=== PATIENT | male | born 1965 | race Hispanic/Latino ===

== ENCOUNTER → 2021-04-18 09:11 | Outpatient (CLI) | payer OTHER, SELFPAY ==
--- NOTE | ~2021-04-18 | XR_ITS ---
EXAMINATION: XR lumbar spine 2-3V DATE: 04/18/2021 09:24 INDICATION: Low back pain TECHNIQUE: Anteroposterior and lateral views of the lumbar spine, and cone-down lateral view of the l umbosacral junction were obtained. COMPARISON: None. FINDINGS: 4 mm anterolisthesis L4 on L5. Alignment is otherwise normal. Vertebral body heights are normal. Mild disc height loss at L2-L3 and mild to moderate disc height loss at L4-L5. Severe facet osteoarthriti s at L4-L5. Sacrum and bilateral sacral iliac joints are normal. IMPRESSION: 1. Mild to moderate lumbar spondylosis most prominent at L4-L5 where there is mild to moderate disc h eight loss, severe facet osteoarthritis and 4 mm anterolisthesis of L4 on L5. Reviewed, dictated and finalized at location A. IMPRESSION: 1. Mild to moderate lumbar spondylosis most prominent at L4-L5 where there is m ild to moderate disc height loss, severe facet osteoarthritis and 4 mm anteroli sthesis of L4 on L5.
== END ==
PROVIDERS: Visit Provider Nurse Practitioner Family
DX: M47.816 Spondylosis without myelopathy or radiculopathy, lumbar region (principal)
CPT/HCPCS: 72100

== ENCOUNTER 2021-05-20 21:36 | Emergency (ER) | payer OTHER, SELFPAY ==
[2021-05-20 21:38] VITALS: BP 192/89; PULSE 73; RESP 16; TEMP 36.6; O2SAT 100
[2021-05-20 22:27] VITALS: BP 164/85; PULSE 67; RESP 16; O2SAT 97
[2021-05-20 23:52] VITALS: BP 156/81
--- NOTE | 2021-05-20 23:54 | PC.NURSE ---
pt had blood rechecked, stated he doesn't feel bad and will follow up with primary tomorrow.
== END 2021-05-21 00:16 | disposition left against medical advice (07) ==
LOC: ANHED 23:57
PROVIDERS: PCP Family Medicine
DX: I10 Essential (primary) hypertension (principal)
CPT/HCPCS: 99199

== ENCOUNTER → 2021-07-08 12:20 | Outpatient (CLI) | payer OTHER, SELFPAY ==
--- NOTE | ~2021-07-08 | XR_ITS ---
XR abdomen/kub 1V DATE: 07/08/2021 12:41 INDICATION: Low back pain TECHNIQUE: AP supine views COMPARISON: 04/18/2021 lumbar spine FINDINGS: No visceromegaly is evident. The psoas shadows are intact. The bowel gas pattern is unremar kable, without evidence of obstruction. No significant abnormal calcification. IMPRESSION: Nonspecific abdomen Reviewed, dictated and finalized at Location A. Reviewed, dictated and finalized at location A. IMPRESSION: Nonspecific abdomen
== END ==
PROVIDERS: PCP Family Medicine; Visit Provider Nurse Practitioner Family
DX: M54.5 Low back pain (principal); R35.0 Frequency of micturition
CPT/HCPCS: 74018

== ENCOUNTER → 2021-08-12 15:27 | Outpatient (CLI) | payer OTHER, SELFPAY ==
--- NOTE | ~2021-08-12 | MR_ITS ---
EXAMINATION: MR lumbar spine wo [facility] EXAM DATE: 08/12/2021 16:39 INDICATION: M47.819 - Spondylosis without myelopathy or radiculopathy... Low Back pain. TECHNIQUE: Multi-sequential, multiplanar MR images of the lumbar spine were obtained without contrast . Sagittal T1, T2, T2 fat saturation images. Axial T2 weighted images. There is no prior study for comparison. FINDINGS: There is mild to moderate disc disease L4-5 and L5-S1, mild at L2-3 and L3-4. There is 5 mm anterolisthesis L4 on L5 without spondylolysis. There is annular fissure at L5-S1. The conus medulla ris terminates at the T12-L1 level and has normal signal intensity and morphology. Mild to moderate chronic compression fracture of the T11 vertebral body. There are no suspicious marrow signal abnorma lities. Paraspinal soft tissue is unremarkable. Level by level evaluation: T12-L1: Disc does not extend beyond the endplate margin. Facet arthropathy: None. Neural foraminal stenosis: No stenosis. Central canal stenosis: No stenosis. L1-L2: Disc does not extend beyond the endplate margin. Facet arthropathy: None. Neural foraminal stenosis: No stenosis. Central canal stenosis: No stenosis. L2-L3: There is a mild to moderate diffuse disc bulge. Facet arthropathy: Mild to moderate. Neural foraminal stenosis: Mild to moderate right, mild left. Central canal stenosis: Mild. L3-L4: There is a mild to moderate diffuse disc bulge. Facet arthropathy: Mild. Neural foraminal stenosis: Mild to moderate right, mild left. Central canal stenosis: Mild. L4-L5: There is a mild to moderate diffuse disc bulge. Facet arthropathy: Moderate . Ligamentum flavum enlargement . Neural foraminal stenosis: Moderate right, mild to moderate left. Central canal stenosis: Mild to moderate. L5-S1: There is a mild to moderate diffuse disc bulge. Central annular fissure. Facet arthropathy: Mild to moderate. Neural foraminal stenosis: Mild to moderate left, mild right. Central canal stenosis: Mild. IMPRESSION: 1. Grade 1 anterolisthesis L4 on L5 without spondylolysis. 2. Mild to moderate lumbar spondylosis. Reviewed, dictated and finalized at location A.
== END ==
PROVIDERS: PCP Nurse Practitioner Family; Visit Provider Nurse Practitioner Family
DX: M47.817 Spondylosis without myelopathy or radiculopathy, lumbosacral region (principal); M48.07 Spinal stenosis, lumbosacral region
CPT/HCPCS: 72148

== ENCOUNTER 2021-08-18 11:50 | Outpatient (CLI) | payer OTHER, SELFPAY ==
--- NOTE | ~2021-08-18 | US_ITS ---
EXAMINATION: US aorta DATE: 08/18/2021 12:28 INDICATION: Abdominal bruit TECHNIQUE: Grayscale, color Doppler, and pulsed Doppler images of the aorta and common iliac arteries were obtained. COMPARISON: None. FINDINGS: The proximal aorta measures 2.7 cm AP. The mid aorta measures 2.0 cm AP. The distal aorta measures 1. 6 cm AP. The right common iliac artery measures 9 mm. The left common iliac artery measures 10 mm. Tr ansverse images of the inferior vena cava with obtained which demonstrate a mobile thin curvilinear e chogenic region within the lumen of the inferior vena cava. IMPRESSION: 1. Normal caliber abdominal aorta. 2. Indeterminate mobile thin curvilinear echogenic region incidentally noted within the lumen of the hepatic portion of the inferior vena cava. Differential would include small amount of thrombus or vas cular web or reflection artifact from the posterior wall. Visualization is poor due to patient body h abitus and depth of the region imaged. No correlate identified in the more caudal inferior vena cava on recent lumbar spine MR dated 08/04/2021. Reviewed, dictated and finalized at location B. IMPRESSION: 1. Normal caliber abdominal aorta. 2. Indeterminate mobile thin curvilinear echogenic region incidentally noted wi thin the lumen of the hepatic portion of the inferior vena cava. Differential w ould include small amount of thrombus or vascular web or reflection artifact fr om the posterior wall. Visualization is poor due to patient body habitus and de pth of the region imaged. No correlate identified in the more caudal inferior v mary cava on recent lumbar spine MR dated 08/04/2021.
== END 2021-08-18 11:51 | disposition home or self-care (01) ==
LOC: ANHIMG 11:53
PROVIDERS: PCP Family Medicine; Visit Provider Nurse Practitioner Family
DX: R09.89 Other specified symptoms and signs involving the circulatory and respiratory systems (principal); R93.7 Abnormal findings on diagnostic imaging of other parts of musculoskeletal system; Z87.19 Personal history of other diseases of the digestive system
CPT/HCPCS: 76775

== ENCOUNTER 2021-08-29 09:22 | Outpatient (CLI) | payer OTHER, SELFPAY ==
--- NOTE | ~2021-08-29 | CT_ITS ---
EXAMINATION: CTA abdomen pelvis EXAM DATE: 08/29/2021 10:01 INDICATION: R93.5 - Abnormal findings on diagnostic imaging of other ... Pain under left rib cage. TECHNIQUE: Spiral CT of the abdomen and pelvis was performed following intravenous injection of 100 m L Omnipaque 350. Axial, coronal and sagittal images of the abdomen and pelvis were reviewed. Maximum intensity projection 3-D reconstructions of the aortoiliac arteries were created by the technologist on dedicated workstation. The dose-length product (DLP) for this examination was 497.85 mGy-cm. Th e exposure was tailored according to patient size (auto mA exposure control), and iterative reconstru ction (ASIR) was used as additional dose reduction technique. Correlation is made to lumbar MRI exami nation from 08/12/2021. FINDINGS: The abdominal aorta is normal in caliber and without dissection. Mild narrowing of the monse ac artery origin. The SMA, renal arteries and BARBARA are widely patent. The liver, spleen, adrenal glan ds and pancreas are unremarkable. Gallbladder is unremarkable. No biliary obstruction. Portal and splenic veins are patent. Kidneys enhance symmetrically. There is no hydronephrosis. The prostate is unremarkable. Small inguinal fat-containing hernias bilaterally. The bladder is unremarkable. T here is no retroperitoneal or pelvic lymphadenopathy. The appendix is normal. The stomach and small bowel are unremarkable. There is expected amount of c olonic stool. No free intraperitoneal gas. The heart is normal in size. There are no pericardial or pleural effusions. The lung bases are unremarkable. There is chronic T11 mild to moderate compr ession fracture. No acute fractures are identified. There is grade 1 anterolisthesis L4 on L5. Lower lumbar spondylosis. IMPRESSION: 1. No acute intra-abdominal findings. 2. Small inguinal hernias. Reviewed, dictated and finalized at location B.
== END 2021-08-29 09:23 | disposition home or self-care (01) ==
LOC: ANHIMG 09:27
PROVIDERS: PCP Family Medicine; Visit Provider Nurse Practitioner Family
DX: R93.5 Abnormal findings on diagnostic imaging of other abdominal regions, including retroperitoneum (principal); K40.90 Unilateral inguinal hernia, without obstruction or gangrene, not specified as recurrent
CPT/HCPCS: 74174; Q9967

== ENCOUNTER → 2021-09-13 00:44 | Outpatient (CLI) | payer OTHER, SELFPAY ==
[2021-09-13 18:23] LABS: SARS-CoV-2 RNA PCR Negative
== END ==
PROVIDERS: PCP Family Medicine; Visit Provider Internal Medicine Gastroenterology
DX: Z01.812 Encounter for preprocedural laboratory examination (principal); Z20.822 Contact with and (suspected) exposure to COVID-19
CPT/HCPCS: C9803; U0003; U0005

== ENCOUNTER 2021-09-17 02:21 | Day surgery (SDC) | payer OTHER, SELFPAY ==
[2021-08-29 13:20] VITALS: BMI 30.9
[2021-09-17 09:30] VITALS: BP 158/90; PULSE 71; RESP 20; TEMP 36.8; O2SAT 100
[2021-09-17] MEDS: LACTATED RINGERS 1,000 ML 150 ML IV CONT (09:33)
--- NOTE | 2021-09-17 10:20 | PM.HPGS ---
History of Present Illness History of Present Illness Consent: Risks, benefits, and alternatives have been discussed and questions answered. Patient agrees to proceed with procedure. Chief complaint: abdominal pain, neoplasm screening Narrative: Uli Bah is a 56 year old male with pain in luq, imaging unremarkable,took omeprazole. Never had scopes. Review of Systems Constitutional: Constitutional: Denies headache(s) and Denies weakness Eyes: Eyes: Denies blurry vision ENT: Reports Normal hearing present, Denies headache(s) and Denies neck pain Cardiovascular: Cardiovascular: Denies chest pain and Denies dyspnea Respiratory: Respiratory: Denies dyspnea Gastrointestinal: Gastrointestinal: Reports no additional gastrointestinal complaints Genitourinary: Genitourinary: Denies dysuria Musculoskeletal: Musculoskeletal: Denies neck pain Integumentary/Breasts: Skin/Breast: Denies dry skin Neurologic: Reports Normal hearing present, Denies headache(s) and Denies weakness Psychiatric: Psychiatric: Denies anxiety Endocrine: Endocrine: Denies change in body appearance Hematologic/Lymphatic: Hematologic/Lymphatic: Denies easy bleeding Allergic/Immunologic: Allergic/Immunologic: Denies urticaria PMFSH Past Medical History Medical History BMI 30.0-30.9,adult BMI 31.0-31.9,adult BMI greater than 30 Family history of prostate cancer in father Lumbar back pain Family History Family History Mother Cancer Father No problems noted. Sibling No problems noted. Sibling No problems noted. 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 Gender identity (if verbalized by the patient): Male Sexual Orientation (if Verbalized by the Patient): Straight or Heterosexual Meds Home Medications and Allergies Home Medications Medication Instructions Recorded Confirmed Type omeprazole magnesium [Prilosec OTC] 20 mg PO DAILY PRN 09/17/21 09/17/21 History Allergies Allergy/AdvReac Type Severity Reaction Status Date / Time Penicillins Allergy Unknown Verified 09/17/21 09:29 Vital Signs Vital Signs - 24 hr 09/17/21 09:30 Temperature 98.3 F Pulse Rate 71 Respiratory Rate 20 Blood Pressure 158/90 H Pulse Oximetry 100 Exam Const: General: comfortable and no acute distress HENMT: General nose exam: Normal nares present Eyes: General: appearance normal, both eyes and all related structures Neck: Neck: no JVD Resp: Auscultation: clear to auscultation bilaterally Cardio: Rate: regular rate Rhythm: regular rhythm GI: Inspection: non-distended GI Palp: Yes Soft to palpation Skin: General skin exam: normal color Neuro: General: gait normal Speech: normal speech Extrem: General: normal to inspection Psych: Mental Status: mental status grossly normal Assessment and Plan Assessment and plan (1) Abdominal pain: Qualifiers: Abdominal location: left upper quadrant Qualified Code(s): R10.12 - Left upper quadrant pain Code(s): R10.9 - Unspecified abdominal pain Status: Acute Assessment and Plan: egd to check for ulcer, etc (2) Screening for malignant neoplasm of colon: Code(s): Z12.11 - Encounter for screening for malignant neoplasm of colon Status: Acute Assessment and Plan: colonoscopy
--- NOTE | 2021-09-17 10:23 | P.PNAN_ITS ---
Anes - Initial Pre Proc Eval Procedure: Operation Date: 09/17/21 10:30 Proposed Procedures p Esophagogastroduodenoscopy & Screening Colonoscopy - Sarwat Herrera MD Date/Time: 09/17/21 10:23 Surgeon: Sarwat Yepez MD Pre Op Diagnosis: abdominal pain, neoplasm screening Patient Data Age: 56 Gender: M Height: 1.75 m Weight: 94.6 kg Last Vital Signs Temp 98.3 F 09/17/21 09:30 Pulse 71 09/17/21 09:30 Resp 20 09/17/21 09:30 BP 158/90 H 09/17/21 09:30 Pulse Ox 100 09/17/21 09:30 Allergies Allergy/AdvReac Type Severity Reaction Status Date / Time Penicillins Allergy Unknown Verified 09/17/21 09:29 Home Medications Medication Instructions Recorded Confirmed Type omeprazole magnesium [Prilosec OTC] 20 mg PO DAILY PRN 09/17/21 09/17/21 History Patient hx anesthesia problems: none Family hx anesthesia problems: none Results Review: All pre-operative results and documents have been reviewed as part of the pre-operative evaluation. [facility] Past Medical History Medical History BMI 30.0-30.9,adult BMI 31.0-31.9,adult BMI greater than 30 Family history of prostate cancer in father Lumbar back pain Family History Family History Mother Cancer Father No problems noted. Sibling No problems noted. Sibling No problems noted. 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 Gender identity (if verbalized by the patient): Male Sexual Orientation (if Verbalized by the Patient): Straight or Heterosexual Anes - Eval Final PreProcedure Day of Procedure 09/17/21 10:23 Patient weight: overweight Heart: regular rate and rhythm Lungs: clear to auscultation Airway: Mallampati scale class II Neurological: alert and oriented Last oral intake: >/= 8 hours ASA classification: II Emergent: no Anesthetic plan: proceed Anesthesia type and monitoring: general GIVS and standard monitoring Results Review: All pre-operative results and documents have been reviewed as part of the pre-operative evaluation. Informed Consent: The patient's anesthetic plan and its attendant risks and benefits were discussed with the patient/family/POA. Questions were solicited and answers provided to the satisfaction of the patient/family/POA.
--- NOTE | 2021-09-17 10:32 | SUR.OPER ---
EGD- [id number] [facility]- [id number]
[2021-09-17 10:56] VITALS: BP 105/44; PULSE 84; RESP 22; O2SAT 99
[2021-09-17 11:06] VITALS: BP 114/69; PULSE 68; RESP 23; O2SAT 97
[2021-09-17 11:16] VITALS: BP 124/71; PULSE 57; RESP 25; O2SAT 99
== END 2021-09-17 11:32 | disposition home or self-care (01) ==
PROVIDERS: PCP Family Medicine; Visit Provider Internal Medicine Gastroenterology
PROC: 0DJ08ZZ Inspection of Upper Intestinal Tract, Via Natural or Artificial Opening Endoscopic (ICD-10-PCS; CPT 43235; principal; 2021-09-17 10:30)
DX: Z12.11 Encounter for screening for malignant neoplasm of colon (principal); R10.12 Left upper quadrant pain; D12.5 Benign neoplasm of sigmoid colon; D12.3 Benign neoplasm of transverse colon; K20.80 Other esophagitis without bleeding; R10.9 Unspecified abdominal pain; K64.8 Other hemorrhoids
CPT/HCPCS: 43239; 45380; 45385; 88305; C9803; J2704; J7120; U0003; U0005

== ENCOUNTER → 2021-11-10 09:24 | Outpatient (CLI) | payer OTHER, SELFPAY ==
[2021-11-10 19:04] LABS: SARS-CoV-2 RNA PCR Positive
== END ==
PROVIDERS: PCP Family Medicine; Visit Provider Family Medicine
DX: U07.1 COVID-19 (principal); R50.9 Fever, unspecified; R52 Pain, unspecified
CPT/HCPCS: C9803; U0003; U0005

== ENCOUNTER 2022-06-15 14:58 | Emergency (ER) | payer OTHER, SELFPAY ==
--- NOTE | 2022-06-15 15:02 | ED.ARRPALP ---
HPI - Arrhythmia/Palpitations General Chief Complaint: Arrhythmia/Palpitations Stated Complaint: heart racing Time Seen by Provider: 06/15/22 15:02 Source: patient Mode of arrival: ambulatory Limitations: no limitations History of Present Illness HPI narrative: Mr. Bah is a 57-year-old male patient presenting to the clinic today with complaints of his heart racing. He reports he just recently took a new workout supplement and of the symptoms and he is having some anxiety. Reports that his heart rate was 130 in the gym as he was trying to work out. He denies any shortness of breath or chest pain however he states he is unable to get a deep breath in. Related Data Allergies Allergy/AdvReac Type Severity Reaction Status Date / Time Penicillins Allergy Unknown Verified 06/15/22 15:15 Review of Systems Review of Systems: Pertinent positives per HPI. Patient denies any fever, chills, rash, headache, visual changes, dizziness, cough, runny nose, sore throat, shortness of breath, chest pain, nausea, vomiting, diarrhea, constipation, abdominal pain, or any urinary issues. PMFSH Past Medical History Medical History BMI 30.0-30.9,adult BMI 31.0-31.9,adult BMI greater than 30 Family history of prostate cancer in father Lumbar back pain Family History Family History Mother Cancer Father No problems noted. Sibling No problems noted. Sibling No problems noted. 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 There is no relevant family history pertinent to the patient complaint. Exam Narrative: General: Well-developed, well nourished, in no apparent distress Head: Normocephalic, atraumatic. Cardio: Regular rate and rhythm, s1 and s2 normal, no murmur appreciated. Resp: Clear to auscultation bilaterally, no rhonchi, rales, wheezing or rubs. Extremities: No deformity, no edema, no cyanosis, capillary refill less than 2 seconds, peripheral pulses palpable and strong. Integumentary: [place], warm, and dry, intact without lesion, no rashes. Course Course Emergency Course: Portions of this record may have been created with voice recognition software. Level of Care: Express Care Visit Vital Signs Vital signs: Vital signs reviewed MDM - Arrhythmia/Palpitations MDM Narrative Medical decision making narrative: At the time of visit patient is resting comfortably on the exam table. His heart rate has gone from 108 bpm down to 90 bpm. Patient is feeling more relaxed. Benadryl 50 mg p.o. given in the clinic today. Recommend avoiding taking this particular pre workout supplement as I suspect he has had adverse reaction to this supportive measures were discussed with the patient he voiced understanding of discharge instructions and agrees with the treatment plan. Differential Diagnosis Differential diagnosis: Likely palpitations, anxiety, artial fibrillation and ventricular tachycardia ECG Data EKG #1: Attestation: I personally reviewed and interpreted this ECG as follows: ECG completion date: 06/15/22 ECG completion time: 15:09 Prior ECG tracings: not available for review Interpretation: EKG shows sinus tachycardia with a heart
[2022-06-15 15:12] VITALS: BP 178/86; PULSE 108; RESP 18; TEMP 37.1; O2SAT 98
--- NOTE | 2022-06-15 15:14 | ECG_ITS ---
Measurements Intervals [place] Rate: 108 P: 58 [place]: 167 QRS: 32 QRSD: 104 T: 32 QT: 323 QTc: 433 Interpretive Statements SINUS TACHYCARDIA BORDERLINE ECG NO PREVIOUS ECG AVAILABLE FOR COMPARISON Electronically Signed On 06-15-2022 16:38:50 CDT by Srikanth Gonzales M.D.
[2022-06-15] MEDS: diphenhydrAMINE HCl CAP 25 MG CAPSULE 50 MG PO (15:23)
== END 2022-06-15 15:27 | disposition home or self-care (01) ==
PROVIDERS: Emergency Provider Nurse Practitioner Family
DX: R00.2 Palpitations (principal); T50.905A Adverse effect of unspecified drugs, medicaments and biological substances, initial encounter
CPT/HCPCS: 93005; 99213; A9270; G0463

== ENCOUNTER 2024-02-15 12:28 | Emergency (ER) | payer OTHER, SELFPAY ==
--- NOTE | 2024-02-15 12:34 | ECG_ITS ---
Measurements Intervals [place] Rate: 61 P: 59 [place]: 167 QRS: 22 QRSD: 105 T: 39 QT: 368 QTc: 374 Interpretive Statements SINUS RHYTHM COMPARED TO ECG 06/15/2022 15:09:20 SINUS RHYTHM NOW PRESENT Electronically Signed On 02-15-2024 14:50:42 CDT by Isaias Frazier M.D.
--- NOTE | 2024-02-15 12:34 | ED.CHESTPAIN ---
HPI - Chest Pain General Chief Complaint: Chest Pain Stated Complaint: Chest Pain Time Seen by Provider: 02/15/24 12:46 Source: patient Mode of arrival: ambulatory Limitations: no limitations History of Present Illness HPI narrative: 58-year-old male presents with concern for left-sided chest pain for several weeks. He reports that symptoms started after he had the flu couple weeks ago. Reports he noticed today after working out. He denies any shortness of breath, cough, fever, injury. Denies nausea or vomiting. MD complaint: chest pain Related Data Allergies Allergy/AdvReac Type Severity Reaction Status Date / Time Penicillins Allergy Unknown Verified 02/15/24 12:46 Review of Systems Review of Systems: CONSTITUTIONAL: Denies malaise, chills, sweats, or fever. CARDIOVASCULAR: Reports chest pain. Denies palpitations, or edema. RESPIRATORY: Denies cough or dyspnea. GASTROINTESTINAL: Denies abdominal pain, nausea, vomiting SKIN: Denies rash or itching. NEUROLOGIC: Denies numbness, weakness, or headache. All systems reviewed & are unremarkable except as noted in HPI and below [facility] Past Medical History Medical History (Updated 02/15/24 @ 13:18 by Carla Roth NP) Acute onset aura migraine BMI 30.0-30.9,adult BMI 31.0-31.9,adult BMI 32.0-32.9,adult BMI 33.0-33.9,adult BMI greater than 30 Family history of prostate cancer in father Lumbar back pain Screening for thyroid disorder [facility] examination Family History Family History Mother Cancer Father No problems noted. Sibling No problems noted. Sibling No problems noted. Social History Social History Smoking status: Never smoker Second hand tobacco smoke exposure: No Alcohol intake: current Alcohol use details: 2 Substance use: never Substance use type: does not use Lack of Transportation: No Lack of Food: Never True Current Housing: I Have Housing Concerned About Future Housing: No Difficulty Paying Gas/Electric Bills: No Difficulty Paying for Meds: No Currently Unemployed: YES Education: High School Diploma/GED Difficulty w/ Childcare or Family Care: No Living arrangements: with family Additional living arrangements comments: and child Occupation/Education: retired 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 There is no relevant family history pertinent to the presenting complaint Exam Narrative: GENERAL: Well-appearing, well-nourished, and in no acute distress. HEAD: Normocephalic, atraumatic. EYES: PERRLA, sclera clear, and EOMI. ENT: Nares clear. Mucous membranes moist. NECK: Supple. CHEST: No respiratory distress. Clear to auscultation. No bony deformities, no asymmetry. Speaks in full sentences. HEART: Regular rate and rhythm. No murmur heard. Normal peripheral pulses. SKIN: Warm, dry, no visible rash. NEURO: Alert and oriented x3. PSYCH: Normal mood and affect Course Course Emergency Course: Patient is aware of diagnosis, understands and agrees to treatment plan. Anticipatory guidance given. Patient agrees to follow-up as directed and is aware of reasons to seek care at the emergency department. Portions of this record may have been created with voice recognition software Level of Care: Express Care Visit Reevaluation(s) Reevaluation #1: Patient reports symptoms have resolved after doing the GI cocktail. Patient has an appointment with his primary care doctor tomorrow, was advised to keep that appointment for further evaluation. Date: 02/15/24 Time: 13:16 Vital
[2024-02-15 12:49] VITALS: BP 157/82; PULSE 69; RESP 16; TEMP 37.1; O2SAT 100
[2024-02-15] MEDS: MAG HYDROX/AL HYDROX/SIMETH 30 ML UDC 15 ML PO (13:01)
[2024-02-15] MEDS: LIDOCAINE HCL 2% VISC SOLN 15 ML UDC PO (13:02)
== END 2024-02-15 13:19 | disposition home or self-care (01) ==
PROVIDERS: Emergency Provider Nurse Practitioner; PCP Family Medicine
DX: R10.13 Epigastric pain (principal)
CPT/HCPCS: 93005; 99213; A9270; G0463

== ENCOUNTER 2024-04-04 07:10 | Outpatient (CLI) | payer OTHER, SELFPAY ==
--- NOTE | ~2024-04-04 | NM_ITS ---
EXAMINATION: NM stress w perf spect multi DATE: 04/04/2024 10:54 INDICATION: Chest pain. TECHNIQUE: Rest images were obtained following intravenous administration of 11.2 mCi Tc99m tetrofosm in (Myoview). The patient performed an exercise activity. At peak exercise, 33.4 mCi Tc99m tetrofosmi n (Myoview) was administered intravenously, and supine and prone stress images were obtained. Data wa s reconstructed into short axis and horizontal and vertical long axis SPECT images. Gated SPECT image s were also obtained. COMPARISON: None. FINDINGS: There is no definite reversible or fixed perfusion abnormality to suggest ischemia or infar ction. There is no segmental wall motion abnormality. Left ventricular ejection fraction measures 5 6%. IMPRESSION: 1. No definite ischemia or infarct. 2. Normal left ventricular ejection fraction measuring 56%. Reviewed, dictated and finalized at location A.
--- NOTE | 2024-04-04 07:30 | ECHO_ITS ---
Patient Info Name: Uli Bah Age: 58 years : 1965 Gender: Male Ht: 68 in Wt: 210 lbs BSA: 2.17 m2 HR: 73 bpm BP: 180 / 107 mmHg Technical Quality: Good Exam Date: 04/04/2024 7:39 AM Exam Location: Echo Lab Patient Status: Outpatient Admit Date: 04/04/2024 Staff Ordering Physician: Cadence Mi APRN Associate Creative Director: Latonia Fabian RDCS Attending Provider: Cadence Mi APRN Referring Physician: Shmuel WARE; Exam Type: CA echo doppler color flow Study Info Indications R07.9 - Chest pain, unspecified Complete two-dimensional, color flow and Doppler transthoracic echocardiogram is performed. Summary 1. Complete two-dimensional, color flow and Doppler transthoracic echocardiogram is performed. 2. Left ventricular chamber dimension is normal. 3. Left ventricular systolic function is normal, estimated at 60-65%. 4. There is mild concentric increased left ventricular wall thickness. 5. The left ventricular diastolic function is normal. 6. E/e' 9 is minimally elevated. 7. Global longitudinal strain is mildly abnormal at -16.7%. 8. Left atrial chamber dimension is mildly enlarged. 9. There is mild aortic valve sclerosis. 10. There is trace mitral valve regurgitation. 11. There is trace tricuspid valve regurgitation. 12. No pulmonary hypertension, estimated pulmonary arterial systolic pressure is 28 mmHg. 13. Dilated inferior vena cava with >50% collapse upon inspiration consistent with elevated right atrial pressure, 10 mmHg. Left Ventricle E/e' 9 is minimally elevated. Global longitudinal strain is mildly abnormal at -16.7%. Left ventricular chamber dimension is normal. Left ventricular systolic function is normal, estimated at 60-65%. There is mild concentric increased left ventricular wall thickness. The left ventricular diastolic function is normal. Right Ventricle Right ventricular systolic function is normal and with normal TAPSE 2.2 cm. Right ventricular chamber dimension is normal. Left Atria Left atrial chamber dimension is mildly enlarged. Right Atria Right atrial chamber dimension is normal. Aortic Valve The aortic valve is trileaflet. There is mild aortic valve sclerosis. There is no aortic valve stenosis. There is no aortic valve regurgitation. Pulmonic Valve There is no pulmonic regurgitation. Mitral Valve There is no mitral valve stenosis. There is trace mitral valve regurgitation. Tricuspid Valve There is trace tricuspid valve regurgitation. No pulmonary hypertension, estimated pulmonary arterial systolic pressure is 28 mmHg. Pericardium/Pleural There is no pericardial effusion. Inferior Vena Cava Dilated inferior vena cava with >50% collapse upon inspiration consistent with elevated right atrial pressure, 10 mmHg. Aorta The aortic root size at the sinus of Valsalva is normal. Left Ventricular Outflow Tract Name Value Normal LVOT 2D LVOT Diameter 2.0 cm LVOT Doppler LVOT Peak Gradient 7 mmHg LVOT Mean Gradient 4 mmHg LVOT VTI 28 cm LVOT VTI/AV VTI Ratio 1.0 LVOT Stroke Volume 92 ml L
--- NOTE | 2024-04-04 07:30 | EST_ITS ---
Patient Info Name: Uli Bah Age: 58 years : 1965 Gender: Male Ht: 68 in Wt: 210 lbs BSA: 2.17 m2 HR: 66 bpm BP: 148 / 80 mmHg Heart Rhythm: Sinus Rhythm Exam Date: 04/04/2024 9:10 AM Exam Location: Echo Lab Patient Status: Outpatient Admit Date: 04/04/2024 Staff Ordering Physician: Cadence Mi APRN Attending Provider: Cadence Mi APRN Exercise Technologist: Rachael Durán CT Exercise Physician: Jackson Ricci DO Exam Type: CA stress test treadmill w NM Study Info Indications R07.89 - Other chest pain A nuclear stress test was performed. Summary 1. 1. Negative Bayron exercise stress test for ischemic ST changes by ECG criteria. 2. 2. Good functional capacity, achieving 12 METs of workload. 3. 3. Baseline hypertension with hypertensive response to exercise. 4. 4. Appropriate HR response to exercise. 5. 5. Appropriate HR recovery at 1 minute post exercise. 6. 6. Nuclear scan to follow and will be reported separately. Please correlate with it. 7. 7. Patient informed of the above results. Protocol: [facility]ron Stress ECG Details Stage: REST Duration (min): 1 min : 6 sec Speed (mph): 0.0 Grade (%): 0 HR (bpm): 67 SBP (mmHg): 148 DBP (mmHg): 80 METS: --- Stage: REST Duration (min): 10 min : 22 sec Speed (mph): 0.0 Grade (%): 0 HR (bpm): 75 SBP (mmHg): 148 DBP (mmHg): 80 METS: --- Stage: STAGE 1 Duration (min): 1 min : 0 sec Speed (mph): 1.7 Grade (%): 10 HR (bpm): 81 SBP (mmHg): 148 DBP (mmHg): 80 METS: --- Stage: STAGE 1 Duration (min): 2 min : 0 sec Speed (mph): 1.7 Grade (%): 10 HR (bpm): 90 SBP (mmHg): 148 DBP (mmHg): 80 METS: --- Stage: STAGE 1 Duration (min): 3 min : 0 sec Speed (mph): 1.7 Grade (%): 10 HR (bpm): 88 SBP (mmHg): 170 DBP (mmHg): 82 METS: --- Stage: STAGE 2 Duration (min): 1 min : 0 sec Speed (mph): 2.5 Grade (%): 12 HR (bpm): 99 SBP (mmHg): 170 DBP (mmHg): 82 METS: --- Stage: STAGE 2 Duration (min): 2 min : 0 sec Speed (mph): 2.5 Grade (%): 12 HR (bpm): 92 SBP (mmHg): 181 DBP (mmHg): 85 METS: --- Stage: STAGE 2 Duration (min): 3 min : 0 sec Speed (mph): 2.5 Grade (%): 12 HR (bpm): 100 SBP (mmHg): 181 DBP (mmHg): 85 METS: --- Stage: STAGE 3 Duration (min): 1 min : 0 sec Speed (mph): 3.4 Grade (%): 14 HR (bpm): 109 SBP (mmHg): 181 DBP (mmHg): 85 METS: --- Stage: STAGE 3 Duration (min): 2 min : 0 sec Speed (mph): 3.4 Grade (%): 14 HR (bpm): 114 SBP (mmHg): 217 DBP (mmHg): 78 METS: --- Stage: STAGE 3 Duration (min): 3 min : 0 sec Speed (mph): 3.4 Grade (%): 14 HR (bpm): 118 SBP (mmHg): 217 DBP (mmHg): 78 METS: --- Stage: STAGE 4 Duration (min): 1 min : 0 sec Speed (mph): 4.2 Grade (%): 16 HR (bpm): 134 SBP (mmHg): 212 DBP (mmHg): 89 METS: --- Stage: STAGE 4 Duration (min): 2 min :
== END 2024-04-04 07:11 | disposition home or self-care (01) ==
LOC: ANHCARD 07:11
PROVIDERS: PCP Family Medicine; Visit Provider Nurse Practitioner Adult Health
DX: R07.89 Other chest pain (principal); I35.8 Other nonrheumatic aortic valve disorders; I51.7 Cardiomegaly
CPT/HCPCS: 78452; 93017; 93306; A9502

== ENCOUNTER 2025-04-19 13:01 | Outpatient (CLI) | payer OTHER, SELFPAY ==
--- NOTE | ~2025-04-19 | US_ITS ---
US soft tissue LE RT 04/19/2025 13:16 Indication: Localized swelling of right lower extremity Procedure: High-resolution Limited soft tissue ultrasound of the right lower extremity Comparison: No prior studies for comparison. Findings: Normal heterogeneous echotexture without focal solid or cystic mass. No abnormal vascularit y. Impression: 1: Normal soft tissue ultrasound of the right lower extremity in the area of palpable concern. No dis crete mass. Reviewed, dictated and finalized at location A. Impression: 1: Normal soft tissue ultrasound of the right lower extremity in the area of pa lpable concern. No discrete mass.
== END 2025-04-19 13:02 | disposition home or self-care (01) ==
LOC: MICIMG 13:02
PROVIDERS: PCP Family Medicine; Visit Provider Family Medicine
DX: R22.41 Localized swelling, mass and lump, right lower limb (principal)
CPT/HCPCS: 76882

== ENCOUNTER 2025-08-21 11:02 | Outpatient (CLI) | payer BC, SELFPAY ==
--- NOTE | ~2025-08-21 | XR_ITS ---
EXAMINATION: XR chest 2V, 08/21/2025 11:57 CDT HISTORY: R05.3 - Chronic cough COMPARISON: No comparisons available. Technique: 2 views obtained. Findings: The lungs are clear, no effusion. No pneumothorax. Heart is normal size. Mediastinal and hilar contours are within normal limits. Bony thorax no acute abnormality. Impression: No acute cardiopulmonary abnormality. Reviewed, dictated and finalized at location P. Impression: No acute cardiopulmonary abnormality.
== END 2025-08-21 11:03 | disposition home or self-care (01) ==
PROVIDERS: PCP Family Medicine; Visit Provider Family Medicine
DX: R05.3 Chronic cough (principal)
CPT/HCPCS: 71046

== ENCOUNTER 2025-09-24 14:00 | Emergency (ER) | payer BC, SELFPAY ==
--- NOTE | 2025-09-24 14:04 | ED.WOUNDLAC ---
HPI - Wound/Laceration General Chief Complaint: Wound/Laceration Stated Complaint: Laceration LT Hand Time Seen by Provider: 09/24/25 14:03 Source: patient Mode of arrival: ambulatory Limitations: no limitations History of Present Illness HPI narrative: Norbert is a 60 year old male patient presenting to the clinic today with complaints of a cut to his left thumb that occurred just prior to arrival. He reports that he cut his finger on a new sharp knife blade. Was attempting to open up a sealed contained with plastic. Accidently cut his left thumb. Last Tetanus [id number]? Bleeding controlled. Related Data Allergies Allergy/AdvReac Type Severity Reaction Status Date / Time cefdinir Allergy Mild Rash Verified 09/24/25 14:02 Penicillins Allergy Mild Unknown Verified 09/24/25 14:02 Review of Systems Review of Systems: Pertinent positives per HPI. Patient denies any fever, chills, rash, headache, visual changes, dizziness, cough, runny nose, sore throat, shortness of breath, chest pain, palpitations, nausea, vomiting, diarrhea, constipation, abdominal pain, or any urinary issues. [facility] Past Medical History Medical History Chest pain Low back pain Screening for thyroid disorder Vertigo Acute onset aura migraine Wellness examination BMI 32.0-32.9,adult BMI 33.0-33.9,adult BMI 30.0-30.9,adult BMI greater than 30 Lumbar back pain BMI 31.0-31.9,adult Family history of prostate cancer in father Family History Family History Mother Cancer Father No problems noted. Sibling No problems noted. Sibling No problems noted. Social History Social History Second hand tobacco smoke exposure: No Alcohol intake: current Alcohol use details: 2 Substance use: never Substance use type: does not use Do You Feel Safe in your Home?: Yes Lack of Transportation: No Lack of Food: Never True Current Housing: I Have Housing Concerned About Future Housing: No Difficulty Paying Gas/Electric Bills: No Difficulty Paying for Meds: No Currently Unemployed: YES Education: High School Diploma/GED Difficulty w/ Childcare or Family Care: No Living arrangements: with family Additional living arrangements comments: and child Occupation/Education: retired 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 There is no relevant family history pertinent to the patient complaint. Exam Narrative: General: Well-developed, well nourished, in no apparent distress Head: Normocephalic, atraumatic. Cardio: Regular rate and rhythm, s1 and s2 normal, no murmur appreciated. Resp: Clear to auscultation bilaterally, no rhonchi, rales, wheezing or rubs. Integumentary: [place], warm, and dry, 1.5 cm flap laceration to the lateral aspect of the left thumb vertically across the PIP joint. Bleeding controlled Course Course Emergency Course: Portions of this record may have been created with voice recognition software. Level of Care: Express Care Visit Vital Signs Vital signs: Vital Signs Temperature 36.6 C 09/24/25 14:07 Pulse Rate 72 09/24/25 14:07 Respiratory Rate 16 09/24/25 14:07 Blood Pressure 177/89 H 09/24/25 14:07 Pulse Oximetry 100 09/24/25 14:07 Oxygen Delivery Room Air 09/24/25 14:07 Temperature 36.6 C 09/24/25 14:07 Pulse Rate 72 09/24/25 14:07 Respiratory Rate 16 09/24/25 14:07 Blood Pressure 177/89 H 09/24/25 14:07 Pulse Oximetry 100 09/24/25 14:07 Oxygen Delivery Room Air 09/24/25 14:07 Vital signs reviewed Procedures Laceration Laceration 1: Date: 09/24/25 Site: hand (left thumb) Size (cm): 1.5 Description: linear and flap Depth: simple, single layer Local Anesthetic: lidocaine 1% Amount of anesthesia used (mL): 1.5 Pre-repair: wound explored and irrigated ====== Skin Level ====== Skin layer closed with: nylon Size (cm): 5-0 Number of sutures: 4 Technique: simple, interrupted ====== Subcutaneous Layer ====== ====== Muscle Layer ====== ====== Tendon Layer ====== Dressing: Verbal consent obtained for laceration repair. Risk and benefits explained and patient voiced understanding. Area was cleansed with antiseptic wound wash and a 27 gauge needle was then used to instill (1.5) ml of 1% lidocaine without epi into the wound edges. Area was prepped and draped using sterile technique. A 5-0 suture on a p needle was used to place (4) interrupted sutures bringing the wound edges together- well approximated. Patient tolerated procedure well. Sterile dressing applied. MDM - Wound/Laceration MDM Narrative Medical decision making narrative: At the time of visit patient is resting comfortably on the exam table. Patient appears to be nontoxic. Complaints of a cut to his left thumb that occurred just prior to arrival. He reports that he cut his finger on a new sharp knife blade. Was attempting to open up a sealed contained with plastic. Accidently cut his left thumb. Last Tetanus [id number]? Bleeding controlled. On exam patient has a 1.5 cm flap laceration to the lateral aspect of the left thumb vertically across the PIP joint. Order for lidocaine 1% without epi, laceration tray, metal finger splint, and Tdap was ordered. Medications: Tdap 0.5 mL IM given in the clinic today Procedure: Laceration repair was performed in the clinic today. Verbal consent was obtained. Wound was cleansed with antiseptic wound wash. A 1.5 mL of lidocaine without epi was injected into the wound edges. Anesthesia was appropriate. Wound was then re-cleansed with antiseptic wound wash. A 5 0 suture on a P3 needle was then used to place 4 interrupted sutures bringing the wound edges well approximate. Patient tolerated well. Dressing was applied. Metal finger splint was applied Plan: Patient has laceration of the left lateral thumb-of repaired in the clinic today placing 4 interrupted sutures bruise-wound edges well approximate. Sutures out in 10-14 days. Wear metal finger splint until healed. May return to the clinic or go to PCP for suture removal. Watch for signs and symptoms of infection. Supportive measures were discussed with the patient and they voiced understanding discharge instructions and agrees to treatment plan. Return precautions reviewed Differential Diagnosis Differential diagnosis: Likely laceration, abscess, abrasion and avulsion of skin Discharge Plan Discharge Clinical Impression: Laceration of thumb Qualifiers: Encounter type: initial encounter Damage to nail status: without damage Foreign body presence: without foreign body Laterality: left Qualified Code(s): S61.012A - Laceration without foreign body of left thumb without damage to nail, initial encounter Patient Disposition: Home Condition: Stable Instructions: Antibiotic Form, Finger Laceration (ED) Additional Instructions: Four interrupted sutures were placed bringing wound edges well approximate. Leave bandage on for 24 hours then may remove and apply band aide covering as needed. Keep wound clean and dry Skin sutures out in 10-14 days. May wash with soap and water and pat dry daily Wear metal finger splint until healed Watch for signs and symptoms of infection- redness, streaking, swelling, purulent discharge, or increase in pain. Follow up with your PCP for suture removal or return to the Express care. Patient Language: [place] Prescriptions: No Action ketoconazole 2 % cream 1 applic topical DAILY Qty: 15 0RF tadalafil [Cialis] 5 mg tablet 5 mg PO DAILY Qty: 90 3RF meloxicam 15 mg tablet 15 mg PO DAILY Qty: 30 0RF amoxicillin 500 mg capsule 500 mg PO Q12H Qty: 20 0RF omeprazole 20 mg capsule,delayed release(DR/EC) 20 mg PO DAILY Qty: 90 1RF epinephrine 0.3 mg/0.3 mL auto-injector 0.3 mg IM ONCE Qty: 2 0RF Rx Instructions: as a single dose; may repeat once testosterone cypionate 200 mg/mL oil 100 mg IM WEEKLY Qty: 10 5RF Rx Instructions: 0.5ml weekly IM mupirocin [Centany] 2 % ointment 1 applic topical BID Qty: 15 0RF Follow-up/Referrals: Gonzalo Little MD [Primary Care Provider, [facility]] Time of Disposition: 14:36 Quality NIHSS Nursing Documentation ED NIHSS nursing documentation: reviewed/agree
[2025-09-24 14:07] VITALS: BP 177/89; PULSE 72; RESP 16; TEMP 36.6; O2SAT 100
[2025-09-24] MEDS: TETANUS,DIPHTHERIA,AC PERTUSSIS ADULT (0.5 ML) BOOSTRIX IM (14:17)
== END 2025-09-24 14:40 | disposition home or self-care (01) ==
PROVIDERS: Emergency Provider Nurse Practitioner Family; PCP Family Medicine
DX: S61.012A Laceration without foreign body of left thumb without damage to nail, initial encounter (principal); W26.0XXA Contact with knife, initial encounter; Z23 Encounter for immunization
CPT/HCPCS: 12001; 90471; 90715; 99212; G0463; J2003

== ENCOUNTER 2025-10-18 11:37 | Outpatient (CLI) | payer BC, SELFPAY ==
--- NOTE | ~2025-10-18 | XR_ITS ---
XR thoracolumbar Indication: M54.50 - Low back pain, unspecified Comparison: None Findings: The vertebral heights are intact. No fracture or subluxation. The disc heights are intact. Soft tissues unremarkable Impression: No acute abnormality. Reviewed, dictated and finalized at location P. TITY SURVEYOR Impression: No acute abnormality.
== END 2025-10-18 11:38 | disposition home or self-care (01) ==
LOC: MICIMG 11:38
PROVIDERS: PCP Family Medicine
DX: M54.50 Low back pain, unspecified (principal); M54.6 Pain in thoracic spine
CPT/HCPCS: 72080